=== PATIENT | female | born 1955 | race Caucasian/White ===

== ENCOUNTER 2024-01-04 17:46 | Inpatient (IN) ==
[2024-01-04 18:48] LABS: Basophils # (Auto) 0 K/mcL (0.00-0.30); Basophils % (Auto) 0 % (0.0-2.0); Eosinophils # (Auto) 0 K/mcL (0.00-0.70); Eosinophils % (Auto) 0 % (0.0-7.0); Hematocrit 43.1 % (34.1-44.9); Hemoglobin 13.7 g/dL (11.2-15.7); Lymphocytes # (Auto) 1.15 K/mcL (1.50-4.80); Lymphocytes % (Auto) 7.9 % (15.5-49.0); Mean Cell Volume 87.4 fL (80.0-100.0); Mean Corpuscular HGB Conc 31.8 g/dL (31.0-36.0); Mean Platelet Volume 10.3 fL (8.8-12.5); Monocytes # (Auto) 0.25 K/mcL (0.10-0.90); Monocytes % (Auto) 1.7 % (1.0-12.0); Neutrophils % (Auto) 90.2 % (38.0-78.0); Platelet Count 311 K/mcL (140-440); RBC 4.93 M/mcL (3.59-5.38); Red Cell Distribution Width 14.4 % (11.5-14.5); WBC 14.5 K/mcL (4.5-11.0)
[2024-01-04] MEDS: HYDROmorphone 1 MG/ML SYRINGE IV ONE (18:55)
[2024-01-04 19:05] LABS: ALT/SGPT 6 U/L (<40); AST/SGOT 21 U/L (<32); Albumin 3.8 gm/dL (3.2-5.2); Albumin/Globulin Ratio 1.3 (1.0-2.3); Alkaline Phosphatase 47 U/L (39-117); Bilirubin,Total < 0.2 mg/dL (0.1-1.0); Blood Urea Nitrogen 14 mg/dL (8-23); Calcium 8.5 mg/dL (8.6-10.4); Carbon Dioxide 20 mmol/L (22-30); Chloride 100 mmol/L (96-108); Globulin 2.9 gm/dL (2.2-3.7); Glomerular Filtration Rate 99; Glucose 159 mg/dL (70-105); Potassium 4.5 mmol/L (3.3-5.1); Sodium 134 mmol/L (133-145)
[2024-01-04 19:22] LABS: Prothrombin Time 13.1 sec (11.9-14.5)
[2024-01-04] MEDS: LEVOFLOXACIN 750 MG/150 ML BAG IV ONE (19:46)
[2024-01-04] MEDS: ONDANSETRON 4 MG/2 ML VIAL IV PRN (19:47)
[2024-01-04] MEDS: LEVOFLOXACIN 750 MG/150 ML BAG IV SCH (19:47)
[2024-01-04] MEDS: 0.9 % SODIUM CHLORIDE 1,000 ML IV SCH (20:25)
[2024-01-04] MEDS: HYDROmorphone 1 MG/ML SYRINGE IV PRN (20:27)
[2024-01-04] MEDS: DOCUSATE SODIUM 100 MG CAPSULE PO SCH (22:23)
[2024-01-04] MEDS: SENNOSIDES 1 TABLET PO SCH (22:23)
[2024-01-04] MEDS: LORazepam 2 MG/ML VIAL IV PRN (22:32)
[2024-01-04 22:42] LABS: Appearance,Urine Clear (Clear); Bilirubin,Urine Negative (Negative); Color,Urine Yellow; Glucose,Urine (UA) Negative (Negative); Ketones,Urine Negative (Negative); Leukocyte Esterase,Urine Negative /uL (Negative); Nitrate,Urine Negative (Negative); Protein,Urine Negative (Negative); Specific Gravity,Urine 1.015 (1.000-1.035); Urine Blood Negative ery/mcL (Negative); Urobilinogen,Urine Normal
[2024-01-04] MEDS: diphenhydrAMINE 50 MG/ML VIAL IV PRN (22:49)
[2024-01-04] MEDS: MAGNESIUM SULFATE 4 GM/100 ML BAG IV ONE ×2 (22:50→23:10)
[2024-01-04] MEDS: 0.9 % SODIUM CHLORIDE 10 ML SYRINGE IV SCH (23:07)
[2024-01-05] MEDS: LEVOFLOXACIN 750 MG/150 ML BAG IV SCH (08:58)
[2024-01-05] MEDS: morphine 100 MG TABLET.ER PO SCH (15:06)
[2024-01-05] MEDS: traZODone HCL 100 MG TABLET PO SCH (21:01)
[2024-01-05] MEDS: ESCITALOPRAM 20 MG TABLET PO SCH (21:02)
[2024-01-06] MEDS: LEVOTHYROXINE 75 MCG TABLET PO SCH (07:22)
[2024-01-06] MEDS: DEXAMETHASONE 4 MG TABLET PO SCH (08:41)
[2024-01-06] MEDS: MAGNESIUM OXIDE 400 MG TABLET PO SCH (08:42)
[2024-01-06] MEDS ORDERED: ROCURONIUM 10 MG/ML ML IV ONE (11:50)
[2024-01-06] MEDS ORDERED: PROPOFOL 200 MG/20 ML VIAL IV ONE (11:50)
[2024-01-06] MEDS ORDERED: fentaNYL 100 MCG/2 ML VIAL ONE ×2 (11:50→13:39)
[2024-01-06] MEDS ORDERED: ONDANSETRON 4 MG/2 ML VIAL ONE (11:50)
[2024-01-06] MEDS ORDERED: LIDOCAINE 2% PF 5 ML VIAL ONE (11:50)
[2024-01-06] MEDS ORDERED: KETAMINE 50 MG/ML Syringe IV ONE (11:50)
[2024-01-06] MEDS ORDERED: DEXAMETHASONE 10 MG/ML VIAL ONE (11:50)
[2024-01-06] MEDS ORDERED: MAGNESIUM SULFATE 2 GM/50 ML BAG IV ONE (11:51)
[2024-01-06] MEDS ORDERED: PHENYLephrine 1 MG/10 ML SYRINGE (ANEST) ONE (12:49)
[2024-01-06] MEDS ORDERED: HYDROmorphone 0.5 MG/0.5 ML SYRINGE ONE ×2 (13:10→13:18)
[2024-01-06] MEDS ORDERED: diphenhydrAMINE 50 MG/ML VIAL IV PRN (13:29)
[2024-01-06] MEDS ORDERED: MEPERIDINE 25 MG/ML VIAL IV PRN (13:29)
[2024-01-06] MEDS ORDERED: NALOXONE HCL 0.4 MG/ML VIAL IV PRN (13:29)
[2024-01-06] MEDS ORDERED: HYDROmorphone 0.5 MG/0.5 ML SYRINGE IV PRN (13:29)
[2024-01-06] MEDS ORDERED: IPRATROPIUM/ALBUTEROL 3 ML AMPUL.NEB NEB PRN (13:29)
[2024-01-06] MEDS ORDERED: METHOCARBAMOL 1,000 MG/10 ML VIAL IV PRN (13:29)
[2024-01-06] MEDS ORDERED: LACTATED RINGERS 250 ML IV PRN (13:29)
[2024-01-06] MEDS ORDERED: ONDANSETRON 4 MG/2 ML VIAL IV PRN (13:29)
[2024-01-06] MEDS ORDERED: SUGAMMADEX SODIUM 200 MG/2 ML VIAL IV ONE (13:46)
[2024-01-06] MEDS: ACETAMINOPHEN 1,000 MG/100 ML BAG IV ONE (14:05)
[2024-01-06] MEDS: fentaNYL 100 MCG/2 ML VIAL IV PRN (14:41)
[2024-01-06] MEDS: morphine 100 MG TABLET.ER PO SCH (16:25)
[2024-01-06] MEDS: LACTATED RINGERS 1,000 ML IV SCH (16:26)
[2024-01-06] MEDS: LORazepam 2 MG/ML VIAL IV PRN (21:12)
[2024-01-07 06:38] LABS: ALT/SGPT 14 U/L (<40); AST/SGOT 37 U/L (<32); Albumin 3.5 gm/dL (3.2-5.2); Albumin/Globulin Ratio 1.2 (1.0-2.3); Alkaline Phosphatase 45 U/L (39-117); Bilirubin,Direct < 0.2 mg/dL (0-0.3); Bilirubin,Total 0.3 mg/dL (0.1-1.0); Blood Urea Nitrogen 5 mg/dL (8-23); Calcium 8.3 mg/dL (8.6-10.4); Carbon Dioxide 24 mmol/L (22-30); Chloride 104 mmol/L (96-108); Glomerular Filtration Rate 107; Glucose 134 mg/dL (70-105); Lactate Dehydrogenase 171 U/L (135-225); Potassium 3.8 mmol/L (3.3-5.1); Sodium 139 mmol/L (133-145); Triglycerides 163 mg/dL (<150); Uric Acid 4.1 mg/dL (2.5-8.0)
[2024-01-07 06:39] LABS: Basophils # (Auto) 0.01 K/mcL (0.00-0.30); Basophils % (Auto) 0.1 % (0.0-2.0); Eosinophils # (Auto) 0 K/mcL (0.00-0.70); Eosinophils % (Auto) 0 % (0.0-7.0); Hemoglobin 14.4 g/dL (11.2-15.7); Lymphocytes # (Auto) 2.35 K/mcL (1.50-4.80); Mean Corpuscular HGB Conc 31.3 g/dL (31.0-36.0); Mean Platelet Volume 10.9 fL (8.8-12.5); Monocytes # (Auto) 1.01 K/mcL (0.10-0.90); Monocytes % (Auto) 6.9 % (1.0-12.0); Neutrophils % (Auto) 76.7 % (38.0-78.0); Platelet Count 306 K/mcL (140-440); RBC 5.17 M/mcL (3.59-5.38); WBC 14.7 K/mcL (4.5-11.0)
[2024-01-07] MEDS: ACETAMINOPHEN 500 MG TABLET PO SCH (13:04)
== END 2024-01-07 15:30 | disposition home or self-care (01) | DRG 419 ==
LOC: ED 17:46 → MEDSUR 17:46
PROVIDERS: ADMIT Family Medicine Adult Medicine; ATTEND Family Medicine Adult Medicine